=== PATIENT | male | born 1930 | race Caucasian/White ===

== ENCOUNTER 2017-01-09 13:00 | Inpatient (IN) | payer MEDICARE, BC ==
[~2017-01-09] VITALS: Ht 185.4 cm; Wt 77.7 kg
--- NOTE | ~2017-01-09 | ECH ---
Transthoracic Echocardiography Report (TTE) Demographics Patient Name DIANE LORENZ Date of Study 01/10/2017 Patient Number [id number] Visit Number [id number] Date of 1930 Room Number 314 Accession Number [id number] Gender Male Age 86 year(s) Referring Trena Andrade Wash Barrel Leader Laina Urena [facility] Physician MD Miguel LYN Physician Interpreting Jh SEYMOUR Flex O Writer Operator Physician Florencio Supervising Ordering Physician Trena Andrade MD/TANNA SEYMOUR Nurse Stress Crayon Sorting Machine Feeder Conclusions Contractility Score Summary Normal Left Ventricular contractility was noted. Summary Technically fair exam. The estimated left ventricular ejection fraction is 60-65%. Mild to moderate left ventricular hypertrophy. Diastolic assessment reveals Grade I diastolic dysfunction. Aortic valve sclerotic with no hemodynamic significant stenosis. There is trivial aortic regurgitation by color Doppler. Mild tricuspid regurgitation by color Doppler. There is mild pulmonary hypertension. The pulmonary pressure (RVSP) is 38 mmHg. Mild mitral regurgitation by color Doppler. Recommendation The patient will be given the results of this study by the physician who ordered the exam. Procedure Type of Study TTE procedure:Echo Complete SF. Procedure Date Date: 01/10/2017 Start: 04:11 PM Technical Quality: Fair due to poor acoustical window. Indications:Congestive heart failure and Atrial fibrillation. Appropriate Use Criteria: 9 Height: 73 inches Weight: 174 pounds BSA: 2.03 m Rhythm: Within normal limits HR: 78 bpm BP: 156/67 mmHg M-Mode/2D Measurements LV Diastolic Dimension: 5 cm LV Systolic Dimension: 2.8 cm LV Septum Diastolic: 1.02 cm LV PW Diastolic: 1.32 cm AO Root Dimension: 2.54 cm Cardiac Output: 4.64 l/min LA Dimension: 4.26 cm Cardiac Index: 2.29 l/min*m LA volume index: 29 ml/m LVOT: 1.64 cm RV Base: 3 cm LVOT VTI: 28.2 cm RV Mid: 2.2 cm LV Stroke volume: 59.54 ml RV Length: 6.5 cm LV Stroke volume index: 29.33 ml/m Doppler Measurements AV Peak Velocity: 2.2 m/s MV Peak E-Wave: 1.07 m/s AV Peak Gradient: 19.36 mmHg MV Peak A-Wave: 1.04 m/s AV Mean Gradient: 7.7 mmHg MV E/A Ratio: 1.03 LVOT Peak Velocity: 1.29 m/s AV Area (Continuity):1.42 cm MV Deceleration Time: 215 msec TR Velocity:2.87 m/s PV Peak Velocity: 0.96 m/s TR Gradient:32.95 mmHg PV Peak Gradient: 3.69 mmHg Estimated RAP:5 mmHg Estimated PASP: 37.95 mmHg Estimated RVSP: 38 mmHg RA Area: 12.9 cm Findings Left Ventricle The left ventricle is normal in size . Mild to moderate left ventricular hypertrophy. Diastolic assessment reveals Grade I diastolic dysfunction. Right Ventricle Normal right ventricle structure and function. Left Atrium Normal left atrial size. Right Atrium Normal right atrial size. Mitral Valve Normal mitral valve structure and function. Mild mitral annular calcification. Mild mitral regurgitation by color Doppler. Aortic Valve The aortic valve was not well imaged but appears sclerotic with a mean gradient of 7.7mmHg found at apex. There is trivial aortic regurgitation by color Doppler. Tricuspid Valve Normal tricuspid valve structure and function. Mild tricuspid regurgitation by color Doppler. There is mild pulmonary hypertension. The pulmonary pressure (RVSP) is 38 mmHg. Pulmonic Valve The pulmonic valve is not well visualized. Pericardial Effusion No evidence of pericardial effusion. Miscellaneous Visualized portions of the aortic root and ascending aorta appear normal in size. Pleural Effusion No evidence of pleural effusion. Contractility Score LV regional wall motion:(0-Non visualized 1-Normal 2-Hypokinesis 3-Akinesis 4-Dyskinesis 5-Aneurysm) Signature
--- NOTE | ~2017-01-09 | WND ---
ADMIT: 01/09/2017 RM/LOC: 314 [facility] MR#: [id number] [id number] [place], [place] [address] DIANE LORENZ [address] [facility] [place] [address] Wound Care Clinic SEX: M AGE: 86 : 1930 DATE OF VISIT: 01/10/2017 TIME IN: 0730 hours. TIME OUT: 0740 hours. REASON FOR VISIT: Evaluation and treatment of coccyx ulceration. A request for wound care from Dr. Albrecht. HISTORY OF PRESENT ILLNESS: This is an 86-year-old male, who was seen by Wound Care in May of 2014 for full thickness horton to left ear, neck, posterior scalp, as well as bullae on his bilateral feet with abrasions. This has since healed. Most recently, he was seen in the emergency room on 01/09/2017 with shortness of breath, confusion, respiratory distress. He had been seen at [facility] and sent to the ER via ambulance because of his confusion and his low sats on room air. He had recently been on a cruise. He started coughing about 3 weeks ago, has got progressively worse until 1 week ago. He had extreme cough and shortness of breath. He had decreased energy and appetite. Lower extremity swelling. He sleeps with his bed up. He has been coughing large amount of sputum. He was seen at the [facility] and an INR check revealed his INR to be greater than 14 and his O2 sats on room was 80s. Therefore, he was sent to the [facility] for further evaluation and care. He was admitted with concerns about acute hypoxic respiratory failure, sepsis, bilateral community-acquired pneumonia, COPD with exacerbation, atrial fibrillation, as well as supratherapeutic INR. Acute kidney injury and pressure ulceration on his coccyx. Hypertension. PAST MEDICAL HISTORY: Atrial fibrillation with chronic anticoagulation with Coumadin, status post pacemaker implantation. COPD. Hypothyroidism. History of squamous cell carcinoma of the skin. History of COPD. Hypothyroidism. Rotator cuff surgery. Chronic kidney disease. Asthma. Skin cancer. ALLERGIES: Latex, Neosporin. CURRENT MEDICATIONS: Per the MAR. Please see the MAR for further details. 1. Deltasone. 2. Mucinex. 3. Neurontin. 4. Senokot S. 5. Synthroid. 6. Tambocor. 7. Dulera. 8. DuoNeb. 9. Zosyn. PRN medications: 1. Tylenol. 2. Tylenol suppository. 3. Nitrostat. 4. Kenalog cream. ADMIT: 01/09/2017 RM/LOC: 314 [facility] MR#: [id number] [address] [address] DIANE LORENZ [address] [place] [address] Wound Care Clinic SEX: M AGE: 86 : 1930 FAMILY HISTORY: Significant for cancer, heart disease, and stroke. SOCIAL HISTORY: He has a doctorate. Denies any tobacco use. Denies any illicit drugs or alcohol use. He is a of [employer]. He lives in [place] with his . He is currently retired. REVIEW OF SYSTEMS: He is examined in the ICU where he is on an AccuMax mattress. He is alert and awake. He denies any recent fever or chills. No nausea or vomiting. His appetite is decreased. He does have a cough. He denies any current chest pain. He denies any abdominal discomfort. He states he has had a sore on his bottom for "quite some time." He says it is painful. PHYSICAL EXAMINATION: VITAL SIGNS: Temperature 98.9 Fahrenheit, pulse 73, respirations 26, O2 sats on oxygen per nasal cannula is 96%, blood pressure 171/68. Body wide skin exam was done. To his coccyx area, he has an open ulceration that measures 3 cm x 0.7 cm, the depth of 0.3 cm. This is full thickness with a red moist wound base. No surrounding erythema or induration. To his right foot, he has a callus on the first metatarsal head that measures 1.5 cm x 1.5 cm, and to the right great toe a callus that measures 0.7 cm x 0.7 cm. No other skin issues noted except for multiple small abrasions to all extremities. ASSESSMENT: 1. Stage III pressure ulceration to coccyx present upon admission. 2. Callus to right foot. TREATMENT PLAN: We will continue on a low air loss mattress overlay when he leaves the ICU. He is currently on a pressure redistribution mattress. He is to have Sensi-Care to his coccyx 4 times a day and p.r.n. any stooling. Position changes every 2 hours if he does not reposition on his own. Encouraged him to sleep off his coccyx. Also, recommended a chair air cushion when he is up. The calluses to his right foot can be addressed on an outpatient basis. Thank you for this referral and Wound will follow while he is inpatient. Elisa Stevenson APRN/ jamie JOB #: [id number] CC: Boston Albrecht, Attending Physician [facility] Physician, Family Physician
[~2017-01-09 13:00] MED LIST: COUMADIN7.5 MG PO; DULERA 100/58.8 GM IH; FLOMAX DPS0.4 MG PO; GUAIFENESIN400 MG PO; KENALOG OINT. 015 GM TP; LEVAQUIN DPS750 MG PO; NEURONTIN DPS100 MG PO; PROVENTIL HFA6.7 GM IH; SYNTHROID DPS0.1 MG PO; TAMBOCOR DPS50 MG PO; ULTRAM DPS50 MG PO; XYLOCAINE 2% JEL5 M1 TP
--- NOTE | 2017-01-11 16:37 | HP ---
ADMIT: 01/09/2017 RM/LOC: 314 [facility] MR#: [id number] [address] [address] DIANE LORENZ [address] [facility] [place] [address] History and Physical SEX: M AGE: 86 : 1930 DATE OF SERVICE: 01/09/2017 HISTORY OF PRESENT ILLNESS: An 86-year-old male with a past medical history of COPD; atrial fibrillation, on chronic anticoagulation and status post pacemaker implantation; hypothyroidism, who was admitted with acute hypoxic respiratory failure. The patient reports he first started noticing cough about 3 weeks ago. He reports this had gotten progressive worse until 1 week ago when "the bottom fell out," and he noticed extremely worsening cough and shortness of breath. He continued to get progressively worse and noted some confusion as well. He denied any fevers or muscle aches. He was recently on a cruise, but denies any known sick contacts. He reports decreased energy and decreased appetite, also notes some lower extremity swelling. He does not sleep flat, so is unable to comment on orthopnea. He is coughing up large amounts of sputum. He does have a Symbicort and Spiriva and albuterol at home which he has been using. He reports this improved some, but not a lot. He was into [facility] for an [facility]R check today which revealed his INR to be greater than 14, so he was sent to clinic for evaluation. Per clinic report, he was hypoxic in the 80s on room air. He does not wear oxygen at home. They evaluated the patient and drove basic lab work and then sent him here for admission and further evaluation for pneumonia and possible CHF and COPD exacerbations. The patient reports he feels a little bit better than earlier today after his breathing treatment just now. He denies any chest pain, nausea, vomiting. Denies any signs of bleeding. No melena or hematochezia. Does report he has noticed increased urinary urgency and has been taking enough p.o. Denies any dysuria or increased frequency. Denies any headaches or nasal congestion. PAST MEDICAL HISTORY: 1. Atrial fibrillation, on chronic anticoagulation with Coumadin, status post pacemaker implantation. 2. COPD. 3. Hypothyroidism. 4. History of squamous cell carcinoma of the skin. HOME MEDICATIONS: 1. Albuterol. 2. Flecainide. 3. Symbicort. 4. Gabapentin. 5. Guaifenesin. 6. Levothyroxine. 7. Triamcinolone cream. 8. Trospium. 9. Warfarin. 10.Acetaminophen. 11.Ibuprofen. ADMIT: 01/09/2017 RM/LOC: 314 [facility] MR#: [id number] [address] [address] DIANE LORENZ [address] [place] [address] History and Physical SEX: M AGE: 86 : 1930 ALLERGIES: LATEX AND PEANUTS. SOCIAL HISTORY: Never smoker. Rare alcohol use. Lives at home with his . REVIEW OF SYSTEMS: Complete review of systems was obtained and is negative except for what is listed above in the HPI. PHYSICAL EXAMINATION: VITAL SIGNS: Include temperature of 99.9, pulse 82, respiratory rate 21, blood pressure 161/75, and oxygen saturation 94% on 4 L nasal cannula. GENERAL: Alert and in no acute distress, resting comfortably. HEENT: Mucous membranes are dry. Thick bloody discharge on the roof of his mouth. Extraocular movements intact. No scleral icterus. CARDIOVASCULAR: Regular rate and rhythm without murmurs. Minimal JVD noted. RESPIRATORY: Diffuse wheezing in all lung mays noted. Bibasilar rhonchi also noted. ABDOMEN: Hypoactive bowel sounds. Soft, nontender. EXTREMITIES: +1 edema to bilateral knees of lower extremities. SKIN: No signs of bruising or bleeding or rashes noted on skin. PSYCH: Does not appear depressed or anxious. Answers questions appropriately. NEUROLOGIC: Moving all four extremities. No focal deficits noted. LABORATORY DATA: CBC shows white blood cells 20.2, hemoglobin 13.5, and platelets 449 at outside hospital earlier today. CMP also done at outside hospital reveals creatinine of 1.4 (last creatinine 1.0), BUN 44, otherwise, electrolytes are adequate. INR at outside hospital was greater than 14, INR here is above upper limits of measurement as well. Urine cultures and blood cultures pending. UA does not look suspicious as source of infection. Lactic acid 1.3. Procalcitonin 1.18. ProBNP 5192, troponin 0.028. PH 7.42, pCO2 of 32.9, PO2 of 66, HCO3 of 21.4. IMAGING: Chest x-ray reveals bilateral opacities suggestive of pneumonia. ASSESSMENT AND PLAN: An 86-year-old male with past medical history of atrial fibrillation, status post pacemaker implantation and on chronic anticoagulation with warfarin; hypothyroidism; and chronic obstructive pulmonary disease, admitted with bilateral pneumonia and likely chronic obstructive pulmonary disease exacerbation. 1. Acute hypoxic respiratory failure. 2. Sepsis. 3. Bilateral community-acquired pneumonia. 4. Chronic obstructive pulmonary disease exacerbation. a. New oxygen requirements of 4 L nasal cannula. b. Currently giving Solu-Medrol, Zosyn, DuoNeb to cover for both pneumonia and COPD exacerbation. c. The patient has no known history of MRSA, so does not need ADMIT: 01/09/2017 RM/LOC: 314 [facility] MR#: [id number] [address] [address] DIANE LORENZ [address] [place] [address] History and Physical SEX: M AGE: 86 : 1930 vancomycin at this time. d. We will attempt to get sputum culture, though expect will be low yield. e. Continue pulse ox. 5. Atrial fibrillation, on chronic anticoagulation with warfarin. 6. Supratherapeutic INR. a. INR was greater than 14 at outside hospital today, and is so above upper limits of measurement here. b. The patient got 5 mg vitamin K already today at outside hospital, currently giving 2 units FFP now. c. The patient with no signs or symptoms of bleeding, we will hold further warfarin or DVT prophylaxis for now. d. The patient reports that he has been getting his medications mixed up since he has been sick, so likely this is the cause of his supratherapeutic INR in addition to possibly acute illness. 7. Acute kidney injury. Baseline creatinine 1.0, now 1.4, suspect this may be due in part to acute illness and decreased p.o. intake. a. He has gotten some IV fluids as of yet, but due to increased suspicion of possible CHF exacerbation, will net fluids to avoid worsening his acute hypoxic respiratory failure. 8. Coccygeal pressure ulcer, present on admission. a. We will consult Wound Care. 9. Hypertensive, but no known history of hypertension and not on any antihypertensive as an outpatient. a. We will monitor for now. Full code. No chemical DVT prophylaxis due to supratherapeutic INR. General diet. Maria Elena Maria MD / Boston Albrecht MD / jamie JOB #: [id number] CC: Boston Albrecht, Attending Physician [facility] Physician, Family Physician
[2017-01-16] MEDS ORDERED: DELTASONE DPS20 MG PO (11:49)
[2017-01-16] MEDS ORDERED: ROBITUSSIN200 MG/10 PO (11:50)
[2017-01-16] MEDS ORDERED: DIFLUCAN DPS100 MG PO (11:50)
[2017-01-16] MEDS ORDERED: TAMBOCOR DPS50 MG PO (11:51)
[2017-01-16] MEDS ORDERED: SENOKOT S1 TAB PO (11:51)
[2017-01-16] MEDS ORDERED: DUONEB DPS3 ML IH (11:53)
--- NOTE | 2017-01-19 19:40 | ER ---
ADMIT: 01/09/2017 RM/LOC: 314 [facility] MR#: [id number] [address] [facility] [address] [place], [place] [address] DIANE LORENZ [address] [facility] [address] Emergency Room Report SEX: M AGE: 86 : 1930 DATE: 01/09/2017 CHIEF COMPLAINT: Shortness of breath, confusion, respiratory distress which continues in the ED. He was just returned from a trip. [facility] and they sent him to us via ambulance due to his confusion. They said he is raging, he got otitis media, and he has had pneumonia in the past. He has no problems urinating. They stated today from the ID that he had urinary problems. PAST MEDICAL HISTORY: Atrial fibrillation, COPD, hypothyroid, Damon's palsy, hearing loss, and skin cancer. He has a pacer. He has multiple surgeries. MEDICATIONS: See T-sheet for that. ALLERGIES: TO LATEX, NEOSPORIN, AND BACITRACIN. PHYSICAL EXAMINATION: VITAL SIGNS: 146/55, heart rate 80, respirations 24, O2 saturation 93% on 4 L, temp is 95.8, moderately anxious. He is on oxygen. RESPIRATORY: Rhonchi bilaterally, decreased air movement. CVS: Regular in rate and rhythm. ABDOMEN: Nontender. EXTREMITIES: Pedal edema bilaterally. NEUROLOGIC: Oriented x3. Mood and affect are depressed. Chest x-ray bilateral pneumonia. Labs, from [facility], was sent to us from today with white count of 20.0. INR greater than 14. We repeated it here after he was given 5 mg of vitamin K p.o. at the ID and the INR here is greater than 6, phosphorus is 3.4. Lactic acid is 1.3. Procalcitonin is still pending. He has BNP of 5192. Magnesium 2.4. He is O positive. He has blood in the urine 1+ and some bacteria. His ABGs at room air O2, PO2 of 60, ADMIT: 01/09/2017 RM/LOC: 314 [facility] MR#: [id number] [address] [address] DIANE LORENZ [address] [place] [address] Emergency Room Report SEX: M AGE: 86 : 1930 pCO2 of 30.8, pH 7.4. EKG normal sinus with prolonged QT at 78 beats per minute. IMPRESSION: New onset congestive heart failure with severe sepsis, bilateral pneumonia, subtherapeutic anticoagulation, and hypokalemia. Dr. Albrecht contacted for orders. We started him on the sepsis resuscitation protocol as well as sepsis screen. Dr. Albrecht would like to decrease the fluid, so as not to over burden his kidneys because of the CHF and the high numbers. The patient will be admitted to the ICU. Orders have been received by Dr. Albrecht. The patient awaiting room placement. Decadron 12 mg IV was given to help with his breathing, also a DuoNeb treatment. He is on the pump house operator and pulse oximetry. He is in fair condition. RIKI Salinas / Jama Redd MD / modl JOB #: [id number] CC: Boston Albrecht MD, Attending Physician [facility] Physician, Family Physician
--- NOTE | 2017-01-30 12:58 | DS ---
ADMIT: 01/09/2017 RM/LOC: 521 [facility] MR#: [id number] [address] [address] DIANE LORENZ [address] [facility] [place] [address] General Discharge Summary SEX: M AGE: 86 : 1930 ADMISSION DATE: 01/09/2017 DISCHARGE DATE: 01/15/2017 FINAL DIAGNOSES: 1. Shortness of breath. 2. Chronic obstructive pulmonary disease with exacerbation. 3. Pneumonia with severe sepsis. 4. Heart failure with preserved ejection fraction, chronic. 5. Hypoxic respiratory failure. 6. Elevated INR. 7. Atrial fibrillation status post pacer. 8. Generalized weakness. REASON FOR ADMISSION: See dictated H and P, but briefly, this is an 86-year- old gentleman with history of COPD, presented with increased weakness as well as shortness of breath. He was found to be hypoxic. He was also found to have a supratherapeutic INR. See dictated H and P for more details. HOSPITAL COURSE: Patient was admitted and placed on Zosyn and some IV steroids as well as pulmonary toilet. Initially was admitted to the intensive care unit because of his hypoxia and he met criteria for severe sepsis. We did consult Wound Care because he has a pressure sore initially as well on the coccygeal area. By the , he was changed to kind of routine telemetry status. He continued to need PT and OT as well as speech therapy with some difficulty swallowing. He continued to need some vitamin K to get his INR down by the and then his INR did come down okay. He had a modified barium swallow, which showed that he needs mechanical soft diet with extra sauce and gravy. He can do thin liquids and he needs pills crushed and no straws. Social Work made arrangements for him to go over to skilled care [facility] [place] with his regular doctors down there. His breathing did improve, but he continued to need some oxygen to maintain his sats. On the , he actually had increased oxygen needs and felt some increased chest congestion. His weight was up and he did have 2+ edema. At that time, he was started on IV Lasix. This was continued on the and the . By , he was doing much better. He did get a dose of IV Lasix that day and then he was arranged to go to skilled care on the . DISCHARGE MEDICATIONS: 1. He will be on prednisone 40 mg daily for 4 more days. ADMIT: 01/09/2017 RM/LOC: 521 [facility] MR#: [id number] [address] [address] DIANE LORENZ [address] [place] [address] General Discharge Summary SEX: M AGE: 86 : 1930 2. Diflucan 100 mg daily for 30 days. 3. Neurontin 200 mg t.i.d. 4. Robitussin 400 mg q.4 hours. 5. Senokot S one tab daily. 6. Synthroid 0.1 mg daily. 7. Tambocor 50 mg b.i.d. 8. Budesonide/formoterol inhaler two puffs b.i.d. 9. DuoNeb q.i.d. 10.He will be on warfarin 7.5 mg daily. PLAN: He will get INR in 1 week's time. He will continue with PT and OT and follow up with primary doctor in 1 week's time. Boston Albrecht MD/ jamie JOB #: [id number] CC: Boston Albrecht MD, Attending Physician [facility] Physician, Family Physician
== END 2017-01-15 14:25 | DRG 871 ==
LOC: ER 13:00 → 3ICU 14:40 → 5MS 01-11 12:53
PROVIDERS: ADMIT Internal Medicine
DX: A41.9 Sepsis, unspecified organism (principal); J16.8 Pneumonia due to other specified infectious organisms; J96.01 Acute respiratory failure with hypoxia; N17.9 Acute kidney failure, unspecified; I11.0 Hypertensive heart disease with heart failure; L89.153 Pressure ulcer of sacral region, stage 3; I50.9 Heart failure, unspecified; J44.1 Chronic obstructive pulmonary disease with (acute) exacerbation; R65.20 Severe sepsis without septic shock; R79.1 Abnormal coagulation profile; I25.10 Atherosclerotic heart disease of native coronary artery without angina pectoris; L84 Corns and callosities; I48.91 Unspecified atrial fibrillation; R41.0 Disorientation, unspecified; E03.9 Hypothyroidism, unspecified; H91.90 Unspecified hearing loss, unspecified ear; Z85.828 Personal history of other malignant neoplasm of skin; Z79.01 Long term (current) use of anticoagulants; Z95.0 Presence of cardiac pacemaker